=== PATIENT | female | born 1975 | race Caucasian/White ===

== ENCOUNTER 2017-05-18 18:55 | Emergency (ER) | payer MEDICARE, MEDICAID ==
[~2017-05-18] VITALS: Ht 160 cm; Wt 139.3 kg
[~2017-05-18 18:55] MED LIST: ACYCLOVIR 400400 M1 PO; ADIPEX-P37.5 MG PO; ADULT LOW DOSE81 MG PO; ALBUTEROL2.5 MG/31 INH; ALEVE220 M1; AMLODIPINE BESY10 MG PO; AMOXICILLIN 50500 M1 PO; AMOXICILLIN500 M1 PO; AUGMENTIN 875875 MG PO; AZITHROMYCIN 2250 MG PO; B-100 COMPLEX1 EAC1; BREO ELLIPTA 11 EACH INH; BUTALB-APAP-CA1 EACH PO; CAFFEINE200 M1; CALCIUM +D & M1 EACH PO; CALCIUM OYSTER500 MG PO; CIPRO500 MG PO; CLONAZEPAM 1 MG1 M1; CLONAZEPAM 1 MG1 M1 PO; COMBIVENT INH; COUMADIN 2.5MG2.5 M1 PO; COUMADIN 5 MG TA5 M1 PO; COUMADIN7.5 MG PO; CYCLOBENZAPRINE10 MG PO; CYMBALTA20 MG PO; DIABETA 2.5MG2.5 MG; DOXYCYCLINE 10100 MG PO; ENDOCET 5-3251 EACH PO; ENOXAPARIN100 MG/11 SUBQ; ENOXAPARIN40 MG/0.1 SUBQ; ENOXAPARIN60 MG/0.6 SQ; FARXIGA5 MG PO; FIORICET 50-301 EACH PO; FIORICET 50-321 EACH PO; FISH OIL 1,0001 EAC5; FLEXERIL PO; FOLIC ACID0.8 MG PO; FROVA2.5 MG PO; GLUCOPHAGE XR750 MG PO; GLUCOPHAGE1000 MG; HUMALOG100 UNIT/1; HUMULIN N100 UNIT/1 SQ; HYDROCHLOROTH12.5 MG PO; HYDROCODON-ACE1 EA11 PO; HYDROCODONE-AP1 EAC6 PO; IBUPROFEN200 M2 PO; INDERAL LA120 MG PO; IRON; KLOR-CON 1010 MEQ PO; LABETALOL PO; LAMICTAL100 MG PO; LAMICTAL5 MG; LASIX 40 MG TAB40 M1 PO; LASIX 40 MG TAB40 M2; LASIX 40 MG TAB40 M2 PO; LATUDA40 MG PO; LEVOTHROID; LIPITOR 20 MG T20 M1 PO; LISINOPRIL5 MG PO; LOMOTIL TABLET1 EACH PO; LOPRESSOR 50 MG50 M1 PO; MAXALT MLT ODT10 MG PO; MEDROLDOSEPACK PO; MELATONIN1 MG; METHOCARBAMOL500 M2; METHYLDOPA500 MG; METHYLDOPA500 MG PO; MULTIVITAMINS PO; NEURONTIN600 MG PO; NEXIUM40 MG PO; NORCO 5-325 TA1 EACH PO; NOVOLIN N100 UNIT/1; NYSTATIN15 GM TOP; OMEPRAZOLE 20 M20 M1 PO; ONDANSETRON HCL4 M2 PO; OXCARBAZEPINE600 MG; OXYCODONE10 MG/0.5 PO; PAXIL10 MG; PERCOCET 10-321 EACH PO; PERCOCET 5-3251 EACH PO; PERCOCET 7.5-31 EACH PO; PHENADOZ25 MG RC; PHENAZOPYRIDIN200 M2 PO; PHENERGAN 25 MG25 M1 PO; PHENERGAN 25 MG25 MG PO; POTASSIUM; POTASSIUM20 PO; PREDNISONE 10 M10 M1 PO; PREDNISONE 20 M20 M1 PO; PREDNISONE 20 M20 MG PO; PREDNISONE50 MG PO; PRENATAL; PROCARDIA XL90 MG PO; PROMETHEGAN25 MG RC; PROPRANOLOL 1010 M1 PO; PROZAC 20 MG20 M1 PO; PROZAC 20 MG20 MG PO; PROZAC PO; REMERON15 MG PO; ROBAXIN 750 MG750 M1 PO; ROBAXIN 750 MG750 MG PO; SAVELLA1 EACH PO; SAVELLA50 MG PO; TESSALON PERLE100 MG PO; TIROSINT75 MCG PO; TOPAMAX 25 MG T25 M1 PO; TORADOL 10 MG T10 MG PO; TRAZODONE 150150 M1; TREXIMET 85-501 EACH; ULTRAM 50MG TAB50 MG PO; VALTREX 500 MG500 MG PO; VENTOLIN HFA INH8 GM INH; VICODIN; VITAMIN D 5050000 I1; VITAMIN D 5050000 I1 PO; WELLBUTRIN SR150 MG; WELLBUTRIN SR150 MG PO; WELLBUTRIN XL300 MG PO; XANAX XR1 MG; XANAX1 MG PO; ZANAFLEX2 MG PO; ZANAFLEX4 M1 PO; ZOFRAN ODT4 MG DISSOLVE; ZOFRAN ODT4 MG PO; ZOFRAN4 MG PO; ZPAK PO; ZYRTEC 10 MG TA10 M1 PO; [UNRECOGNIZED DRUG - OTHER] PO
[2017-05-18] MEDS ORDERED: COUMADIN7.5 MG PO (19:13)
[2017-05-18] MEDS ORDERED: COUMADIN6 MG (19:13)
[2017-05-18] MEDS ORDERED: ZANAFLEX4 MG (19:20)
[2017-05-18 19:37] LABS: ABSOLUTE BASOPHILS 0.1 thou/uL (0.0-0.2); ABSOLUTE EOSINOPHILS 0.3 thou/uL (0.0-0.7); ABSOLUTE LYMPHOCYTES 3.8 thou/uL (0.8-5.3); ABSOLUTE MONOCYTES 0.8 thou/uL (0.0-1.2); ABSOLUTE NEUTROPHILS 5.4 thou/uL (1.6-8.1); BASOPHILS 0.6 %; EOSINOPHILS 2.9 %; HEMOGLOBIN 14.3 gm/dL (12.0-15.0); LYMPHOCYTES 36.7 %; MCH 27.5 pg (26.0-34.0); MCHC 32.5 g/dL (28.0-37.0); MCV 84.7 fL (80.0-100.0); MONOCYTES 7.8 %; MPV 9.9 fl. (7.2-11.1); NUCLEATED RBCS 0 /100WBC; PLATELET COUNT* 225 thou/uL (150-400); RBC 5.19 mil/uL (4.20-5.00); WBC 10.4 thou/uL (4.0-11.0)
[2017-05-18 19:41] LABS: ANION GAP 8 mmol/L (7-16); BUN 10 mg/dL (7-18); CALCIUM 8.8 mg/dL (8.5-10.1); CHLORIDE 108 mmol/L (98-107); CO2 27 mmol/L (21-32); CREATININE 0.9 mg/dL (0.6-1.3); GLUCOSE 100 mg/dL (70-99); POTASSIUM 3.8 mmol/L (3.5-5.1); SODIUM 143 mmol/L (136-145)
[2017-05-18 19:48] LABS: ALBUMIN 3.6 g/dL (3.4-5.0); ALKALINE PHOSPHATASE 113 U/L (46-116); SGOT 14 U/L (15-37); SGPT 19 U/L (30-65); TOTAL BILIRUBIN 0.3 mg/dL (<0.1-1.0); TOTAL PROTEIN 7.2 g/dL (6.4-8.2); TROPONIN-I LEVEL <0.06 ng/mL (<0.06)
[2017-05-18 21:27] LABS: INFLUENZA A ANTIGEN None Detected (None Detect); INFLUENZA B ANTIGEN None Detected (None Detect)
[2017-05-18 21:50] VITALS: BP 132/77
[2017-05-18] MEDS ORDERED: PREDNISONE50 MG PO (21:51)
[2017-05-18] MEDS ORDERED: BUTALB-APAP-CA1 EACH PO (21:51)
[2017-05-18] MEDS ORDERED: AMOXICILLIN 50500 M1 PO (21:51)
--- NOTE | 2017-05-19 15:33 | EKG ---
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 : 1975 Requested By: Vania Ron Order Number: [id number] MD: James Delaney Measurements Intervals [place] Rate: 63 P: 0 CA: 131 QRS: 1 QRSD: 104 T: 3 QT: 420 QTc: 430 Interpretive Statements Sinus rhythm Low voltage, precordial leads Left ventricular hypertrophy Artifact in lead(s) I,II,III,aVR,aVL,aVF Compared to ECG 03/09/2016 15:49:30 Low QRS voltage now present Electronically Signed On 05-19-2017 15:33:15 ASSOCIATE DRAFTER by James Delaney [email or web address] <ELECTRONICALLY SIGNED> By: James Delaney MD, [facility] 05/19/17 1533 [id number] James Delaney MD, [facility] /EPI
[2017-06-14] MEDS ORDERED: COUMADIN7.5 MG PO (11:20)
[2017-06-14] MEDS ORDERED: DICLOFENAC SODI25 MG PO (11:21)
[2017-06-14] MEDS ORDERED: SENNA-DOCUSATE1 EACH PO (12:50)
[2017-06-14] MEDS ORDERED: PERCOCET 5-3251 EACH PO (12:50)
[2017-06-17] MEDS ORDERED: VITAMIN D1000 UNI1 PO (10:17)
[2017-06-17] MEDS ORDERED: COUMADIN 5 MG TA5 M1 PO (10:17)
[2017-06-17] MEDS ORDERED: ONDANSETRON HCL4 M2 PO (10:18)
[2017-06-17] MEDS ORDERED: BUTALB-APAP-CA1 EACH PO (10:31)
[2017-06-17] MEDS ORDERED: TIZANIDINE HCL4 M1 PO (10:32)
[2017-06-17] MEDS ORDERED: LEVSIN-SL0.125 MG SUBLING (11:03)
== END 2017-05-18 21:50 | disposition home or self-care (01) ==
LOC: M.ERS 18:55
PROVIDERS: Personal Emergency Response Attendant
DX: J45.901 Unspecified asthma with (acute) exacerbation (principal); J06.9 Acute upper respiratory infection, unspecified; G43.909 Migraine, unspecified, not intractable, without status migrainosus

== ENCOUNTER 2017-05-31 15:12 | Emergency (ER) | payer MEDICARE, MEDICAID ==
[~2017-05-31] VITALS: Ht 160 cm; Wt 139.3 kg
[~2017-05-31 15:12] MED LIST changes: +COUMADIN6 MG; +ZANAFLEX4 MG
[2017-05-31] MEDS ORDERED: LASIX 80 MG TAB80 MG PO (15:28)
[2017-05-31] MEDS ORDERED: NEURONTIN600 MG PO (15:29)
[2017-05-31] MEDS ORDERED: POTASSIUM20 PO (15:29)
[2017-05-31] MEDS ORDERED: LIPITOR 20 MG T20 M1 PO (15:30)
[2017-05-31 15:31] LABS: URINE BILIRUBIN NEGATIVE (Negative); URINE BLOOD NEGATIVE (Negative); URINE CLARITY CLEAR; URINE COLOR YELLOW; URINE GLUCOSE-RANDOM NEGATIVE (Negative); URINE KETONES TRACE (Negative); URINE LEUKOCYTES-REFLEX NEGATIVE (Negative); URINE NITRITE-REFLEX NEGATIVE (Negative); URINE PROTEIN NEGATIVE (Negative); URINE SPECIFIC GRAVITY >= 1.030 (1.005-1.030)
[2017-05-31] MEDS ORDERED: PHENTERMINE H37.5 M1 PO (15:31)
[2017-05-31 15:44] LABS: ABSOLUTE BASOPHILS 0.2 thou/uL (0.0-0.2); ABSOLUTE EOSINOPHILS 0.4 thou/uL (0.0-0.7); ABSOLUTE LYMPHOCYTES 3.2 thou/uL (0.8-5.3); ABSOLUTE MONOCYTES 0.9 thou/uL (0.0-1.2); ABSOLUTE NEUTROPHILS 7.6 thou/uL (1.6-8.1); BASOPHILS 1.4 %; EOSINOPHILS 2.9 %; HEMATOCRIT 43.5 % (37.0-47.0); HEMOGLOBIN 14.3 gm/dL (12.0-15.0); MCH 27.9 pg (26.0-34.0); MCHC 32.8 g/dL (28.0-37.0); MCV 85.2 fL (80.0-100.0); MONOCYTES 7.1 %; MPV 9.6 fl. (7.2-11.1); NUCLEATED RBCS 0 /100WBC; PLATELET COUNT* 206 thou/uL (150-400); POLYS 62.6 %; RBC 5.11 mil/uL (4.20-5.00); RDW-CV 19.6 % (10.5-14.5); WBC 12.1 thou/uL (4.0-11.0)
[2017-05-31 15:59] LABS: ANION GAP 8 mmol/L (7-16); BUN 12 mg/dL (7-18); CALCIUM 8.8 mg/dL (8.5-10.1); CHLORIDE 110 mmol/L (98-107); CO2 25 mmol/L (21-32); CREATININE 0.8 mg/dL (0.6-1.3); GLUCOSE 96 mg/dL (70-99); POTASSIUM 4.3 mmol/L (3.5-5.1); SODIUM 143 mmol/L (136-145)
[2017-05-31 16:06] LABS: ALBUMIN 3.3 g/dL (3.4-5.0); ALKALINE PHOSPHATASE 121 U/L (46-116); LIPASE 173 U/L (73-393); SGOT 22 U/L (15-37); SGPT 30 U/L (30-65); TOTAL BILIRUBIN 0.2 mg/dL (<0.1-1.0); TOTAL PROTEIN 6.6 g/dL (6.4-8.2); TROPONIN-I LEVEL <0.06 ng/mL (<0.06)
[2017-05-31] MEDS ORDERED: PRILOSEC 20 MG20 MG PO (16:28)
[2017-05-31] MEDS ORDERED: ONDANSETRON HCL4 M2 PO (16:28)
[2017-05-31 16:47] VITALS: BP 109/60
[2017-06-14] MEDS ORDERED: COUMADIN7.5 MG PO (11:20)
[2017-06-14] MEDS ORDERED: DICLOFENAC SODI25 MG PO (11:21)
[2017-06-14] MEDS ORDERED: PERCOCET 5-3251 EACH PO (12:50)
[2017-06-14] MEDS ORDERED: SENNA-DOCUSATE1 EACH PO (12:50)
[2017-06-17] MEDS ORDERED: VITAMIN D1000 UNI1 PO (10:17)
[2017-06-17] MEDS ORDERED: COUMADIN 5 MG TA5 M1 PO (10:17)
[2017-06-17] MEDS ORDERED: ONDANSETRON HCL4 M2 PO (10:18)
[2017-06-17] MEDS ORDERED: BUTALB-APAP-CA1 EACH PO (10:31)
[2017-06-17] MEDS ORDERED: TIZANIDINE HCL4 M1 PO (10:32)
[2017-06-17] MEDS ORDERED: LEVSIN-SL0.125 MG SUBLING (11:03)
== END 2017-05-31 16:48 | disposition home or self-care (01) ==
LOC: M.ERS 15:12
PROVIDERS: Physician Assistant
DX: R10.13 Epigastric pain (principal); G43.909 Migraine, unspecified, not intractable, without status migrainosus; I10 Essential (primary) hypertension; E03.9 Hypothyroidism, unspecified; J45.909 Unspecified asthma, uncomplicated; F32.9 Major depressive disorder, single episode, unspecified; F41.9 Anxiety disorder, unspecified; K21.9 Gastro-esophageal reflux disease without esophagitis; E78.5 Hyperlipidemia, unspecified; F17.210 Nicotine dependence, cigarettes, uncomplicated; Z88.5 Allergy status to narcotic agent; Z88.8 Allergy status to other drugs, medicaments and biological substances

== ENCOUNTER 2018-01-07 20:36 | Emergency (ER) | payer MEDICARE, MEDICAID ==
[~2018-01-07] VITALS: Ht 160 cm; Wt 120.7 kg
[~2018-01-07 20:36] MED LIST changes: +DICLOFENAC SODI25 MG PO; +LASIX 80 MG TAB80 MG PO; +LEVSIN-SL0.125 MG SUBLING; +PHENTERMINE H37.5 M1 PO; +PRILOSEC 20 MG20 MG PO; +SENNA-DOCUSATE1 EACH PO; +TIZANIDINE HCL4 M1 PO; +VITAMIN D1000 UNI1 PO
[2018-01-07 21:15] LABS: ABSOLUTE BASOPHILS 0.1 thou/uL (0.0-0.2); ABSOLUTE EOSINOPHILS 0.2 thou/uL (0.0-0.7); ABSOLUTE LYMPHOCYTES 3.4 thou/uL (0.8-5.3); ABSOLUTE MONOCYTES 0.7 thou/uL (0.0-1.2); ABSOLUTE NEUTROPHILS 3.6 thou/uL (1.6-8.1); BASOPHILS 0.8 %; EOSINOPHILS 2.1 %; HEMATOCRIT 38.8 % (37.0-47.0); HEMOGLOBIN 12.9 gm/dL (12.0-15.0); LYMPHOCYTES 42.6 %; MCH 28.8 pg (26.0-34.0); MCHC 33.3 g/dL (28.0-37.0); MCV 86.6 fL (80.0-100.0); MONOCYTES 8.8 %; MPV 9.6 fl. (7.2-11.1); NUCLEATED RBCS 0 /100WBC; PLATELET COUNT* 204 thou/uL (150-400); POLYS 45.7 %; RBC 4.48 mil/uL (4.20-5.00); RDW-CV 18.2 % (10.5-14.5); WBC 7.9 thou/uL (4.0-11.0)
[2018-01-07 21:22] LABS: ANION GAP 8 mmol/L (7-16); BUN 10 mg/dL (7-18); CALCIUM 7.9 mg/dL (8.5-10.1); CHLORIDE 107 mmol/L (98-107); CO2 24 mmol/L (21-32); GLUCOSE 105 mg/dL (70-99); POTASSIUM 3.8 mmol/L (3.5-5.1); SODIUM 139 mmol/L (136-145)
[2018-01-07 21:33] LABS: ALBUMIN 3.1 g/dL (3.4-5.0); ALKALINE PHOSPHATASE 95 U/L (46-116); LIPASE 189 U/L (73-393); NT-PRO BRAIN NAT PEPTIDE 75 pg/mL (<300); SGOT 24 U/L (15-37); SGPT 23 U/L (30-65); TOTAL BILIRUBIN 0.2 mg/dL (<0.1-1.0); TOTAL PROTEIN 6.3 g/dL (6.4-8.2); TROPONIN-I LEVEL <0.06 ng/mL (<0.06)
[2018-01-07 21:36] LABS: INR 1.5; PROTIME 14.4 Seconds (9.20-11.50)
[2018-01-07 21:44] LABS: URINE BILIRUBIN NEGATIVE (Negative); URINE BLOOD NEGATIVE (Negative); URINE CLARITY CLEAR; URINE COLOR YELLOW; URINE GLUCOSE-RANDOM NEGATIVE (Negative); URINE KETONES TRACE (Negative); URINE LEUKOCYTES-REFLEX NEGATIVE (Negative); URINE NITRITE-REFLEX NEGATIVE (Negative); URINE PROTEIN NEGATIVE (Negative); URINE SPECIFIC GRAVITY >= 1.030 (1.005-1.030); URINE UROBILINOGEN 0.2 E.U./dl (0.2-1.0)
[2018-01-07 22:38] VITALS: BP 156/80
--- NOTE | 2018-01-08 10:36 | EKG ---
[place] [address] ELECTROCARDIOGRAM REPORT Name: JOSE SHORE [id number] Admission: 01/07/18 Attend Phys: Discharge: 01/07/18 Date of : [birth year] Report #: [id number] THIS REPORT FOR: //name// [facility] ED Test Date: 2018-01-07 Test Time: 20:42:54 Pat Name: JOSE SHORE Department: Room: Gender: F Supervisor Sanding: : 1975 Requested By: Jessica Jiménez Order Number: [id number] MD: Delvis Crooks Measurements Intervals [place] Rate: 77 P: 18 MN: 120 QRS: 9 QRSD: 98 T: 9 QT: 376 QTc: 426 Interpretive Statements Sinus rhythm Left ventricular hypertrophy Compared to ECG 05/18/2017 19:04:28 No significant changes Electronically Signed On 01-08-2018 10:36:34 CDT by Delvis Crooks [email or web address] <ELECTRONICALLY SIGNED> By: Delvis Crooks MD, [facility] 01/08/18 1036 41 41 Delvis Crooks MD, FACC /EPI
== END 2018-01-07 22:40 | disposition home or self-care (01) ==
LOC: M.ERS 20:36
PROVIDERS: Emergency Medicine
DX: R07.89 Other chest pain (principal); F17.210 Nicotine dependence, cigarettes, uncomplicated; Z88.6 Allergy status to analgesic agent; Z88.8 Allergy status to other drugs, medicaments and biological substances; Z98.890 Other specified postprocedural states

== ENCOUNTER 2018-10-21 13:29 | Emergency (ER) | payer OTHER, MEDICAID ==
[~2018-10-21] VITALS: Ht 160 cm; Wt 108.9 kg
[~2018-10-21 13:29] MED LIST changes: +LATUDA120 MG PO; -LATUDA40 MG PO
[2018-10-21] MEDS ORDERED: LAMICTAL XR200 MG PO (13:48)
[2018-10-21] MEDS ORDERED: TRILEPTAL600 MG PO (13:49)
[2018-10-21] MEDS ORDERED: COUMADIN 1MG TAB1 M1 PO (13:50)
[2018-10-21] MEDS ORDERED: COUMADIN7.5 MG PO (13:51)
[2018-10-21] MEDS ORDERED: VERAPAMIL E.R240 M1 PO (13:51)
[2018-10-21] MEDS ORDERED: ZEMBRACE S3 MG/0.5 M SUBQ (13:52)
[2018-10-21] MEDS ORDERED: ADIPEX-P37.5 MG PO (13:53)
[2018-10-21] MEDS ORDERED: BUPRENORPHINE1 EAC1 TRANSDERM (13:55)
[2018-10-21] MEDS ORDERED: VENTOLIN HFA 1818 GM INH (14:19)
[2018-10-21] MEDS ORDERED: ACCUNEB SO1.25 MG/1 INH (14:19)
[2018-10-21] MEDS ORDERED: PREDNISONE 20 M20 MG PO (14:19)
[2018-10-21] MEDS ORDERED: AUGMENTIN 875-1 EACH PO (14:19)
[2018-10-21 14:42] VITALS: BP 137/88
== END 2018-10-21 14:44 | disposition home or self-care (01) ==
LOC: M.ERS 13:29
DX: J01.00 Acute maxillary sinusitis, unspecified (principal); J20.9 Acute bronchitis, unspecified; J45.909 Unspecified asthma, uncomplicated; Z98.890 Other specified postprocedural states; F17.210 Nicotine dependence, cigarettes, uncomplicated; Z88.5 Allergy status to narcotic agent; Z88.8 Allergy status to other drugs, medicaments and biological substances

== ENCOUNTER 2018-12-07 20:01 | Emergency (ER) | payer OTHER, MEDICAID ==
[~2018-12-07] VITALS: Ht 160 cm; Wt 99.8 kg
[~2018-12-07 20:01] MED LIST changes: +ACCUNEB SO1.25 MG/1 INH; +AUGMENTIN 875-1 EACH PO; +BUPRENORPHINE1 EAC1 TRANSDERM; +COUMADIN 1MG TAB1 M1 PO; +LAMICTAL XR200 MG PO; +NORCO 5-325 TA1 EAC1 PO; +TRILEPTAL600 MG PO; +VENTOLIN HFA 1818 GM INH; +VERAPAMIL E.R240 M1 PO; +ZEMBRACE S3 MG/0.5 M SUBQ
[2018-12-07 20:05] VITALS: BP 131/82
== END 2018-12-07 20:30 | disposition left against medical advice (07) ==
LOC: M.ERS 20:01
DX: B02.9 Zoster without complications (principal); Z53.21 Procedure and treatment not carried out due to patient leaving prior to being seen by health care provider

== ENCOUNTER 2018-12-20 16:47 | Emergency (ER) | payer OTHER, MEDICAID ==
[~2018-12-20] VITALS: Ht 160 cm; Wt 99.8 kg
[2018-12-20] MEDS ORDERED: PROZAC20 MG PO (17:06)
[2018-12-20] MEDS ORDERED: ZEMBRACE S3 MG/0.5 M (17:06)
[2018-12-20] MEDS ORDERED: FLONASE 0.05%50 MCG NASAL (17:21)
[2018-12-20] MEDS ORDERED: AUGMENTIN 875-1 EACH PO (17:21)
[2018-12-20 17:30] VITALS: BP 125/85
== END 2018-12-20 17:30 | disposition home or self-care (01) ==
LOC: M.ERS 16:47
DX: J06.9 Acute upper respiratory infection, unspecified (principal); F41.9 Anxiety disorder, unspecified; F32.9 Major depressive disorder, single episode, unspecified; M79.7 Fibromyalgia; D86.0 Sarcoidosis of lung; J45.909 Unspecified asthma, uncomplicated; I10 Essential (primary) hypertension; F17.210 Nicotine dependence, cigarettes, uncomplicated; Z98.890 Other specified postprocedural states; Z98.84 Bariatric surgery status; Z88.5 Allergy status to narcotic agent; Z91.048 Other nonmedicinal substance allergy status; Z88.1 Allergy status to other antibiotic agents

== ENCOUNTER 2019-06-01 17:52 | Emergency (ER) | payer OTHER, MEDICAID ==
[~2019-06-01] VITALS: Ht 160 cm; Wt 93.4 kg
[~2019-06-01 17:52] MED LIST changes: +FLONASE 0.05%50 MCG NASAL; +PROZAC20 MG PO; +ZEMBRACE S3 MG/0.5 M
[2019-06-01 18:02] VITALS: BP 137/86
[2019-06-01] MEDS ORDERED: PENICILLIN V P500 MG PO (18:16)
[2019-06-01] MEDS ORDERED: NORCO 5-325 TA1 EAC1 PO (18:16)
== END 2019-06-01 18:32 | disposition home or self-care (01) ==
LOC: M.ERS 17:52
DX: K04.7 Periapical abscess without sinus (principal); I10 Essential (primary) hypertension; J45.909 Unspecified asthma, uncomplicated; M79.7 Fibromyalgia; F32.9 Major depressive disorder, single episode, unspecified; F41.9 Anxiety disorder, unspecified; F17.210 Nicotine dependence, cigarettes, uncomplicated; Z98.84 Bariatric surgery status; Z98.890 Other specified postprocedural states; Z88.5 Allergy status to narcotic agent; Z91.048 Other nonmedicinal substance allergy status

== ENCOUNTER 2019-06-09 09:44 | Emergency (ER) | payer OTHER, MEDICAID ==
[~2019-06-09] VITALS: Ht 160 cm; Wt 93.4 kg
[~2019-06-09 09:44] MED LIST changes: +PENICILLIN V P500 MG PO
[2019-06-09 10:41] LABS: ABSOLUTE BASOPHILS 0.1 thou/uL (0.0-0.2); ABSOLUTE EOSINOPHILS 0.1 thou/uL (0.0-0.7); ABSOLUTE LYMPHOCYTES 2.4 thou/uL (0.8-5.3); ABSOLUTE MONOCYTES 0.4 thou/uL (0.0-1.2); ABSOLUTE NEUTROPHILS 2.7 thou/uL (1.6-8.1); BASOPHILS 1.1 %; EOSINOPHILS 1.9 %; HEMATOCRIT 39.4 % (37.0-47.0); HEMOGLOBIN 13.2 gm/dL (12.0-15.0); LYMPHOCYTES 42.2 %; MCH 29.7 pg (26.0-34.0); MCHC 33.6 g/dL (28.0-37.0); MCV 88.3 fL (80.0-100.0); MONOCYTES 7.9 %; MPV 8.6 fl. (7.2-11.1); NUCLEATED RBCS 0 /100WBC; PLATELET COUNT* 279 thou/uL (150-400); POLYS 46.9 %; RBC 4.46 mil/uL (4.20-5.00); RDW-CV 15.4 % (10.5-14.5); WBC 5.7 thou/uL (4.0-11.0)
[2019-06-09 10:50] LABS: INR 1.6; PROTIME 16.3 Seconds (9.20-11.50)
[2019-06-09 10:57] LABS: CREATININE 0.8 mg/dL (0.6-1.3); POTASSIUM 3.2 mmol/L (3.5-5.1)
[2019-06-09 11:01] LABS: ALBUMIN 2.9 g/dL (3.4-5.0); TOTAL BILIRUBIN 0.1 mg/dL (<0.1-1.0); TOTAL PROTEIN 6.2 g/dL (6.4-8.2)
[2019-06-09 12:10] LABS: INFLUENZA A ANTIGEN Negative (Negative); INFLUENZA B ANTIGEN Negative (Negative)
--- NOTE | 2019-06-09 14:34 | EKG ---
[place] [address] ELECTROCARDIOGRAM REPORT Name: JOSE SHORE Room: [facility]#: [id number] Admission: 06/09/19 Attend Phys: Discharge: Date of : 77 Report #: [id number] THIS REPORT FOR: //name// [facility] ED Test Date: 2019-06-09 Test Time: 11:45:32 Pat Name: JOSE SHORE Department: Room: Gender: F [employer] Emergency Services Manager: [facility] : 1975 Requested By: Elba Farnsworth Order Number: [id number] MD: Delvis Crooks Measurements Intervals [place] Rate: 78 P: 32 IA: 135 QRS: 9 QRSD: 93 T: 43 QT: 390 QTc: 442 Interpretive Statements Sinus rhythm Compared to ECG 01/07/2018 20:42:54 Left ventricular hypertrophy no longer present Electronically Signed On 06-09-2019 14:34:03 [employer]WOOD CUTTER HELPER by Delvis Crooks [email or web address] <ELECTRONICALLY SIGNED> By: Delvis Crooks MD, [facility] 06/09/19 1434 1145 [id number] Delvis Crooks MD, FACC /EPI
[2019-06-09] MEDS ORDERED: PREDNISONE 10 M10 MG PO (14:35)
[2019-06-09] MEDS ORDERED: PROAIR HFA8.5 GM INH (14:35)
[2019-06-09] MEDS ORDERED: PROMETHAZINE-C473 ML PO (14:35)
[2019-06-09] MEDS ORDERED: ALBUTEROL2.5 MG/0.5 INH (14:35)
[2019-06-09 15:00] VITALS: BP 120/64
== END 2019-06-09 15:02 | disposition still patient (30) ==
LOC: M.ERS 09:44
PROVIDERS: Physician Assistant
DX: J20.9 Acute bronchitis, unspecified (principal); I11.0 Hypertensive heart disease with heart failure; I50.9 Heart failure, unspecified; J45.909 Unspecified asthma, uncomplicated; M79.7 Fibromyalgia; F32.9 Major depressive disorder, single episode, unspecified; F41.9 Anxiety disorder, unspecified; F17.210 Nicotine dependence, cigarettes, uncomplicated; Z79.01 Long term (current) use of anticoagulants; Z98.890 Other specified postprocedural states; Z86.711 Personal history of pulmonary embolism; Z91.048 Other nonmedicinal substance allergy status; Z88.6 Allergy status to analgesic agent; Z88.8 Allergy status to other drugs, medicaments and biological substances

== ENCOUNTER 2019-10-17 15:33 | Emergency (ER) | payer OTHER, MEDICAID ==
[~2019-10-17] VITALS: Ht 160 cm; Wt 93.4 kg
[~2019-10-17 15:33] MED LIST changes: +ALBUTEROL2.5 MG/0.5 INH; +PREDNISONE 10 M10 MG PO; +PROAIR HFA8.5 GM INH; +PROMETHAZINE-C473 ML PO
[2019-10-17 16:31] VITALS: BP 123/75
== END 2019-10-17 16:31 | disposition home or self-care (01) ==
LOC: M.ERS 15:33
DX: F43.0 Acute stress reaction (principal); F17.210 Nicotine dependence, cigarettes, uncomplicated; Z88.8 Allergy status to other drugs, medicaments and biological substances; I11.0 Hypertensive heart disease with heart failure; I50.9 Heart failure, unspecified; Z88.5 Allergy status to narcotic agent; Z79.899 Other long term (current) drug therapy

== ENCOUNTER → 2021-06-02 | Outpatient (CLI) | payer OTHER, MEDICAID | LOC: M.LAB 14:46 | PROVIDERS: ATTEND Internal Medicine Gastroenterology | DX: Z01.812 Encounter for preprocedural laboratory examination (principal); Z20.822 Contact with and (suspected) exposure to COVID-19 ==